=== PATIENT | female | born 1935 | race Caucasian/White ===

== ENCOUNTER → 2016-11-29 | Outpatient (CLI) | payer MEDICARE, BC ==
[~2016-11-29] MED LIST: ALBUTEROL HHN; ALPR1TAB2 PO; AMLO-15 PO; ASCO500C7 PO; ASPI-664 PO; CA C1TAB28 PO; DULO60CA6 PO; FLUT16SP24 NASAL; GUAI-112 PO; MONT10TA21 PO; MUPIROCIN; MYLANTA; OMEP20CA9 PO; PREDNISONE PO; QVAR; RANI150T9 PO; SMV40T PO; TIOT18CA IH; TUMS; advair; xopenex
--- NOTE | 2016-11-29 12:34 | RADRPT ---
PROCEDURE: XR pelvis/right hip. CLINICAL INDICATION: Hip pain TECHNIQUE: AP pelvis/AP and lateral right hip views performed. COMPARISON: 08/18/2014 FINDINGS: There is a left total hip replacement. There is no evidence of loosening of the prosthesis. There is moderate right hip osteoarthrosis. This is associated with joint space narrowing, subchondr al sclerosis and osteophytosis. There is normal osseous mineralization. No fractures or osseous le sions are identified. The soft tissues are unremarkable. IMPRESSION: Left total hip replacement. Moderate right hip osteoarthrosis. RPTAT: [facility] .Antonino Souza MD, Date Time Electronically viewed and signed by .Antonino Souza MD, on 11/29/2016 12:34 .B/
== END | disposition home or self-care (01) ==
LOC: HKI 10:34
PROVIDERS: ATTEND Orthopaedic Surgery
DX: M51.36 Other intervertebral disc degeneration, lumbar region (principal); M54.5 Low back pain; M54.16 Radiculopathy, lumbar region; Z96.642 Presence of left artificial hip joint; Z96.653 Presence of artificial knee joint, bilateral
CPT/HCPCS: 73502; G0463